=== PATIENT | male | born 1935 | race Caucasian/White ===

== ENCOUNTER 2016-10-23 20:14 | Emergency (ER) | payer OTHER ==
[2016-10-23 21:46] LABS: HEMOGLOBIN 11.9 gm/dl (14.0-17.5); RED BLOOD COUNT 4.82 M/UL (4.20-5.50); WHITE BLOOD COUNT 6.1 K/UL (4.5-11.0)
[2016-10-23 22:09] LABS: BUN/CREATININE RATIO 14 (0-10)
== END 2016-10-23 23:19 | disposition home or self-care (01) ==
LOC: ER1 20:14
PROVIDERS: Specialist/Technologist Athletic Trainer
DX: R11.10 Vomiting, unspecified (principal); R10.32 Left lower quadrant pain; I25.810 Atherosclerosis of coronary artery bypass graft(s) without angina pectoris; I25.2 Old myocardial infarction; Z90.49 Acquired absence of other specified parts of digestive tract; Z85.51 Personal history of malignant neoplasm of bladder; Z95.1 Presence of aortocoronary bypass graft
CPT/HCPCS: 80053; 82550; 82553; 83690; 83874; 84484; 85025; 93005; 96374; 99284; J2405